=== PATIENT | male | born 1990 | race African-American/Black ===

== ENCOUNTER 2016-12-18 12:03 | Emergency (ER) | payer SELFPAY ==
[~2016-12-18] VITALS: Ht 193 cm; Wt 189.0 kg
[2016-12-18 12:04] VITALS: BP 208/134; PULSE 78; RESP 24; TEMP 98; O2SAT 96
[2016-12-18 12:49] VITALS: BP 145/104; PULSE 75; RESP 20
--- NOTE | 2016-12-18 12:57 | PD ---
HPI Chief Complaint: Headache Time Seen by Provider: 12:52 Travel History International Travel<30 days: No Contact w/Intl Traveler<30days: No Traveled to known affect area: No History of Present Illness HPI Patient is a 26-year-old male presenting to emergency for evaluation of headache. Patient states he has a history of migraines, he reports pain behind his right eye. This is accompanied by photophobia and nausea. He states that he gets headaches 2-3 times a week, this headache started yesterday he has not taken any medication to alleviate the pain. He reports pain as a 6 out of 10 currently. He also reports a history of hypertension, he was previously on lisinopril, triamterene/HCTZ and nifedipine. Patient moved here in July and has been out of his medications for several weeks. He denies any visual changes, chest pain, shortness of breath, dizziness, weakness, fevers or chills. PFSH Past Medical History Hx Anticoagulant Therapy: No Chemotherapy: No Cerebrovascular Accident: No Diabetes: No Hypertension: Yes Respiratory: No Migraines: Yes Past Surgical History Other Surgery: Yes (knee surgery) Social History Alcohol Use: No Tobacco Use: No Substance Use: No Allergies-Medications (Allergen,Severity, Reaction): Coded Allergies: No Known Allergies (Unverified , 12/18/16) Reported Meds & Prescriptions Reported Meds & Active Scripts Active Nifedipine ER 24 HR (Nifedipine) 60 Mg Tab 60 Mg PO DAILY Lisinopril 40 Mg Tab 40 Mg PO DAILY Triamterene-Hydrochlorothiazide 37.5-25 Mg Cap 1 Cap PO DAILY Review of Systems Except as stated in HPI: all other systems reviewed are Neg General / Constitutional: No: Fever HENT: Positive: Headaches, No: Congestion, Neck Stiffness, Neck Pain Cardiovascular: No: Chest Pain or Discomfort Respiratory: No: Shortness of Breath Gastrointestinal: Positive: Nausea, No: Vomiting, Diarrhea, Abdominal Pain Neurologic: Positive: Headache, No: Weakness, Dizziness, Focal Abnormalities, Change in Mentation Physical Exam Narrative GENERAL: Obese, well-developed, alert male. Resting comfortably in no acute distress. SKIN: Focused skin assessment warm/dry. HEAD: Atraumatic. Normocephalic. EYES: Pupils equal and round. No scleral icterus. No injection or drainage. Right eye amblyopia. ENT: No nasal bleeding or discharge. Mucous membranes pink and moist. NECK: Trachea midline. No JVD. CARDIOVASCULAR: Regular rate and rhythm. No murmur appreciated. RESPIRATORY: No accessory muscle use. Clear to auscultation. Breath sounds equal bilaterally. GASTROINTESTINAL: Abdomen soft, non-tender, nondistended. Hepatic and splenic margins not palpable. MUSCULOSKELETAL: No obvious deformities. No clubbing. No cyanosis. No edema. NEUROLOGICAL: Awake and alert. No obvious cranial nerve deficits. Motor grossly within normal limits. Normal speech. PSYCHIATRIC: Appropriate mood and affect; insight and judgment normal. Data Data Last Documented VS Vital Signs Date Time Temp Pulse Resp B/P Pulse Ox O2 Delivery O2 Flow Rate FiO2 12/18/16 12:49 75 20 145/104 12/18/16 12:04 98.0 96 Room Air Orders Comprehensive Metabolic Panel (12/18/16 12:51) Iv Access Insert/Monitor (12/18/16 12:51) Sodium Chloride 0.9% Flush (Ns Flush) (12/18/16 13:00) Ketorolac Inj (Toradol Inj) (12/18/16 13:00) Diphenhydramine Inj (Benadryl Inj) (12/18/16 13:00) Metoclopramide Inj (Reglan Inj) (12/18/16 13:00) Labs Laboratory Tests Test 12/18/16 12:55 Sodium Level 141 MEQ/L Potassium Level 3.9 MEQ/L Chloride Level 104 MEQ/L Carbon Dioxide Level 31.8 MEQ/L Anion Gap 5 MEQ/L Blood Urea Nitrogen 8 MG/DL Creatinine 1.24 MG/DL Estimat Glomerular Filtration 70 ML/MIN Rate Random Glucose 129 MG/DL Calcium Level 8.7 MG/DL Total Bilirubin 1.6 MG/DL Aspartate Amino Transf 63 U/L (AST/SGOT) Alanine Aminotransferase 92 U/L (ALT/SGPT) Alkaline Phosphatase 57 U/L Total Protein 7.5 GM/DL Albumin 3.9 GM/DL [facility] Medical Decision Making Medical Screen Exam Complete: Yes Emergency Medical Condition: Yes Interpretation(s) Vital Signs Date Time Temp Pulse Resp B/P Pulse Ox O2 Delivery O2 Flow Rate FiO2 12/18/16 12:49 75 20 145/104 12/18/16 12:04 98.0 78 24 208/134 96 Room Air Differential Diagnosis Migraine versus tension-type headache versus cluster headache versus elevated blood pressure versus hypertension versus other Narrative Course Patient is a 26-year-old male presenting to emergency evaluation of a headache. Patient is a history of the same, he is neurologically intact. Patient's blood pressure was markedly elevated on arrival, it was reassessed and trended down however he does have a history of hypertension and is currently off of his medications. We'll check chemistry to assess renal function. Medications ordered. 1410 patient reassessed, he was sleeping comfortably, interval improvement in headache. Chemistry assessed, he shows mild transaminitis, renal function is normal. Patient will be provided with prescription refills of his previously prescribed blood pressure medications. He was given information regarding these eye clinic. He was encouraged to establish care with a primary doctor. Patient was educated on the risks of heart disease and stroke with uncontrolled hypertension. Patient verbalizes understanding of instructions. Patient is stable for discharge. Diagnosis Primary Impression: Migraine Qualified Code: G43.909 - Migraine without status migrainosus, not intractable , unspecified migraine type Additional Impression: Hypertension Qualified Code: I10 - Essential hypertension Referrals: [facility] Patient Instructions: General Instructions, Hypertension (ED), Migraine Headache (ED) Additional Instructions: Establish care with a primary doctor or at the [facility] Take medications as directed Patient was encouraged to monitor blood pressure Return to emergency department for any new or worsening symptoms Med/Other Pt SpecificInfo: Prescription(s) given Scripts Nifedipine ER 24 HR 60 Mg Tab60 Mg PO DAILY #30 TAB Ref 0 Prov:Vesna Batista 12/18/16 Lisinopril 40 Mg Tab40 Mg PO DAILY #30 TAB Ref 0 Prov:Vesna Batista 12/18/16 Triamterene-Hydrochlorothiazide 37.5-25 Mg Cap1 Cap PO DAILY #30 CAP Ref 0 Prov:Vesna Batista 12/18/16 Disposition: 01 DISCHARGE HOME Condition: Stable Vesna Batista Dec 18, 2016 12:57 Vesna Batista Dec 18, 2016 12:57
[2016-12-18] MEDS ORDERED: diphenhydrAMINE HCL 50 MG/ML VIAL IVP ONE (13:00)
[2016-12-18] MEDS ORDERED: METOCLOPRAMIDE HCL 10 MG/2 ML VIAL IVP ONE (13:00)
[2016-12-18] MEDS ORDERED: SODIUM CHLORIDE 0.9% FLUSH 10 ML FLUSH IVF PRN (13:00)
[2016-12-18] MEDS ORDERED: KETOROLAC TROMETHAMINE 30 MG/ML (IVP) VIAL IVP ONE (13:00)
[2016-12-18 13:27] LABS: ANION GAP 5 MEQ/L (5-15); AST (GOT) 63 U/L (15-37); BICARBONATE 31.8 MEQ/L (21.0-32.0); BLOOD UREA NITROGEN 8 MG/DL (7-18); CHLORIDE 104 MEQ/L (98-107); GLOMERULAR FILTRATION RATE 70 ML/MIN (>89); POTASSIUM 3.9 MEQ/L (3.5-5.1); SODIUM (NA) 141 MEQ/L (136-145)
[2016-12-18 13:29] LABS: ALKALINE PHOSPHATASE 57 U/L (45-117); ALT (GPT) 92 U/L (12-78); TOTAL BILIRUBIN ADULT 1.6 MG/DL (0.2-1.0)
[2016-12-18] MEDS ORDERED: NIFE60TA58 PO (14:08)
[2016-12-18] MEDS ORDERED: TRIA37.53 PO (14:08)
[2016-12-18] MEDS ORDERED: LISI40TA PO (14:08)
[2016-12-18 14:21] VITALS: BP 146/90
== END 2016-12-18 14:22 | disposition home or self-care (01) ==
LOC: NEPD 12:03
DX: G43.909 Migraine, unspecified, not intractable, without status migrainosus (principal); I10 Essential (primary) hypertension; Z86.69 Personal history of other diseases of the nervous system and sense organs
CPT/HCPCS: 80053; 96374; 96375; 99284; J1200; J1885; J2765

== ENCOUNTER 2016-12-25 18:22 | Emergency (ER) | payer SELFPAY ==
[~2016-12-25] VITALS: Ht 195.6 cm; Wt 185.0 kg
[~2016-12-25 18:22] MED LIST: LISI40TA PO; NIFE60TA58 PO; TRIA37.53 PO
[2016-12-25 18:23] VITALS: BP 185/113; PULSE 90; RESP 16; TEMP 98.3; O2SAT 98
[2016-12-25 18:35] VITALS: BP 177/113; PULSE 82; O2SAT 95
--- NOTE | 2016-12-25 18:38 | PD ---
HPI Chief Complaint: Headache Time Seen by Provider: 18:38 Travel History International Travel<30 days: No Contact w/Intl Traveler<30days: No Traveled to known affect area: No History of Present Illness HPI 26-year-old male with history of hypertension and migraine headaches presents to emergency department today for evaluation of a migraine headache. Pain is generalized, mostly frontal. It is associated with photophobia and mild nausea. This is normal for his migraine headache. No thunderclap onset. Patient states that he started his antihypertensives this morning. He has had to establish primary care. Denies any focal deficits or weakness. No other symptoms to report. PFSH Past Medical History Hx Anticoagulant Therapy: No Chemotherapy: No Cerebrovascular Accident: No Diabetes: No Hypertension: Yes Respiratory: No Migraines: Yes Influenza Vaccination: No Past Surgical History Other Surgery: Yes (knee surgery, turf toe repair) Social History Alcohol Use: Yes (socially) Tobacco Use: No Substance Use: No Allergies-Medications (Allergen,Severity, Reaction): Coded Allergies: No Known Allergies (Unverified , 12/25/16) Reported Meds & Prescriptions Reported Meds & Active Scripts Active Nifedipine ER 24 HR (Nifedipine) 60 Mg Tab 60 Mg PO DAILY Triamterene-Hydrochlorothiazide 37.5-25 Mg Cap 1 Cap PO DAILY Review of Systems Except as stated in HPI: all other systems reviewed are Neg Physical Exam Narrative GENERAL: Obese male patient, ambulatory with a nonantalgic gait no acute distress SKIN: Focused skin assessment warm/dry. HEAD: Atraumatic. Normocephalic. EYES: Pupils equal and round. No scleral icterus. No injection or drainage. ENT: No nasal bleeding or discharge. Mucous membranes pink and moist. NECK: Trachea midline. No JVD. CARDIOVASCULAR: Regular rate and rhythm. No murmur appreciated. RESPIRATORY: No accessory muscle use. Clear to auscultation. Breath sounds equal bilaterally. GASTROINTESTINAL: Abdomen soft, non-tender, nondistended. Hepatic and splenic margins not palpable. MUSCULOSKELETAL: No obvious deformities. No clubbing. No cyanosis. No edema. NEUROLOGICAL: Awake and alert. No obvious cranial nerve deficits. Motor grossly within normal limits. Normal speech. PSYCHIATRIC: Appropriate mood and affect; insight and judgment normal. Data Data Last Documented VS Vital Signs Date Time Temp Pulse Resp B/P Pulse Ox O2 Delivery O2 Flow Rate FiO2 12/25/16 19:10 78 18 177/82 96 Room Air 12/25/16 18:23 98.3 Orders Iv Access Insert/Monitor (12/25/16 18:37) Ketorolac Inj (Toradol Inj) (12/25/16 18:45) Diphenhydramine Inj (Benadryl Inj) (12/25/16 18:45) Metoclopramide Inj (Reglan Inj) (12/25/16 18:45) MDM Medical Decision Making Medical Screen Exam Complete: Yes Emergency Medical Condition: Yes Medical Record Reviewed: Yes Differential Diagnosis Migraine with or without aura versus cluster headache versus tension headache versus hypertension Narrative Course 26-year-old male presents versus prominent for evaluation of migraine headache. He is quite hypertensive here. This is consistent with his history. He states that he started his antihypertensives this morning with his first dose. He has no focal deficits or weakness. Patient is treated for migraine headache. Upon reassessment, he is thankful for the relief. He is encouraged to continue his antihypertensives regularly. He is encouraged to follow-up with primary care provider. He agrees to return immediately with any acute worsening of symptoms. Diagnosis Primary Impression: Migraine Qualified Code: G43.909 - Migraine without status migrainosus, not intractable , unspecified migraine type Additional Impression: Hypertension Qualified Code: I10 - Essential hypertension Referrals: [facility] Primary Care Physician Patient Instructions: General Instructions, Hypertension (ED), Migraine Headache (ED) Additional Instructions: Continue medication as prescribed Follow up with a primary care provider Return to ED with acute worsening of symptoms Med/Other Pt SpecificInfo: No Change to Meds Disposition: 01 DISCHARGE HOME Condition: Stable Shelia James Dec 25, 2016 18:38
[2016-12-25] MEDS ORDERED: diphenhydrAMINE HCL 50 MG/ML VIAL IV PUSH ONE (18:45)
[2016-12-25] MEDS ORDERED: KETOROLAC TROMETHAMINE 30 MG/ML (IVP) VIAL IV PUSH ONE (18:45)
[2016-12-25] MEDS ORDERED: METOCLOPRAMIDE HCL 10 MG/2 ML VIAL IV PUSH ONE (18:45)
[2016-12-25 19:10] VITALS: BP 177/82; PULSE 78; RESP 18; O2SAT 96
== END 2016-12-25 20:50 | disposition home or self-care (01) ==
LOC: NEPE 18:22
DX: G43.909 Migraine, unspecified, not intractable, without status migrainosus (principal); I10 Essential (primary) hypertension
CPT/HCPCS: 96374; 96375; 99284; J1200; J1885; J2765

== ENCOUNTER 2017-07-27 13:33 | Emergency (ER) | payer SELFPAY ==
[~2017-07-27] VITALS: Ht 198.1 cm; Wt 189.0 kg
[2017-07-27 13:35] VITALS: BP 184/130; PULSE 112; RESP 20; TEMP 100.8; O2SAT 96
[2017-07-27] MEDS ORDERED: ACETAMINOPHEN 325 MG TAB PO ONE (13:45)
[2017-07-27 15:24] VITALS: TEMP 99.2
[2017-07-27] MEDS ORDERED: OSEL75 PO (15:39)
--- NOTE | 2017-07-27 15:40 | PD ---
HPI Chief Complaint: Cold / Flu Symptoms Time Seen by Provider: 14:59 Travel History International Travel<30 days: No Contact w/Intl Traveler<30days: No Traveled to known affect area: No History of Present Illness HPI The patient is a 26-year-old [place] male who presents emergency department for body aches, congestion, sore throat, jaw pain, and myalgias. The patient's symptoms started yesterday, he does note a fever as high as 100.8. The patient received Tylenol upon arrival to the emergency department. 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 He denies any nausea, vomiting, diarrhea , or abdominal pain. He does note a dry nonproductive cough without any shortness of breath or chest pain. Symptoms are mild to moderate, there are no current alleviating or exacerbating factors. PFSH Past Medical History Hx Anticoagulant Therapy: No Cardiovascular Problems: Yes (HTN) Chemotherapy: No Cerebrovascular Accident: No Diabetes: No Hypertension: Yes Respiratory: No Migraines: Yes Past Surgical History Surgical History: No Previous Surgery Other Surgery: Yes (knee surgery, turf toe repair) Social History Alcohol Use: Yes (socially) Tobacco Use: No Substance Use: No Allergies-Medications (Allergen,Severity, Reaction): Coded Allergies: No Known Allergies (Unverified Adverse Reaction, Unknown, 07/27/17) Reported Meds & Prescriptions Reported Meds & Active Scripts Active Lisinopril 40 Mg Tab 40 Mg PO DAILY Triamterene-Hydrochlorothiazide 37.5-25 Mg Cap 1 Cap PO DAILY Review of Systems Except as stated in HPI: all other systems reviewed are Neg General / Constitutional: Positive: Fever HENT: Positive: Sore Throat, Congestion Cardiovascular: No: Chest Pain or Discomfort Respiratory: Positive: Cough, No: Shortness of Breath Gastrointestinal: No: Nausea, Vomiting, Diarrhea, Abdominal Pain Genitourinary: No: Dysuria Musculoskeletal: Positive: Myalgias Physical Exam Narrative GENERAL: Awake, alert, pleasant 26-year-old male who appears his stated age and is in no acute respiratory distress. SKIN: Focused skin assessment warm/dry. HEAD: Atraumatic. Normocephalic. EYES: Pupils equal and round. No scleral icterus. No injection or drainage. ENT: No nasal bleeding or discharge. Erythema without exudate. TMs are translucent. EACs are clear. NECK: Trachea midline. No JVD. CARDIOVASCULAR: Regular rate and rhythm. No murmur appreciated. RESPIRATORY: No accessory muscle use. Clear to auscultation. Breath sounds equal bilaterally. GASTROINTESTINAL: Abdomen soft, non-tender, nondistended. No rebound tenderness. MUSCULOSKELETAL: No obvious deformities. No clubbing. No cyanosis. No edema. NEUROLOGICAL: Awake and alert. No obvious cranial nerve deficits. Motor grossly within normal limits. Normal speech. PSYCHIATRIC: Appropriate mood and affect; insight and judgment normal. Data Data Last Documented VS Vital Signs Date Time Temp Pulse Resp B/P (MAP) Pulse Ox O2 Delivery O2 Flow Rate FiO2 07/27/17 15:24 99.2 07/27/17 13:35 112 20 96 Room Air Orders Orders Influenzae A/B Antigen (07/27/17 13:40) Acetaminophen (Tylenol) (07/27/17 13:45) MDM Medical Decision Making Medical Screen Exam Complete: Yes Emergency Medical Condition: Yes Medical Record Reviewed: Yes Interpretation(s) Date/Time Source Procedure Growth Status 07/27/17 14:15 Nasal Aspirate Influenza Types A,B Antigen (XU) - Final Positive For Flu A Antigen Complete Differential Diagnosis Differential diagnosis includes influenza, viral syndrome, bronchitis, pneumonia , URI. Narrative Course The patient received Tylenol in the emergency department. Influenza A is positive, will be treated with Tamiflu. He is advised to return to work once he is afebrile for 24 hours. Return if symptoms worsen or progress. Plenty fluids to stay hydrated. Follow-up with your primary physician. Diagnosis Primary Impression: Influenza A Patient Instructions: General Instructions Additional Instructions: Please provide the patient a work excuse for 3 days. Return to work once you are afebrile. 24 hours. Plenty fluids to stay hydrated. Tamiflu as directed. Med/Other Pt SpecificInfo: Prescription(s) given Scripts Oseltamivir (Tamiflu) 75 Mg Cap 75 MG PO BID for Mgmt Viral Infection for 5 Days, #10 CAP 0 Refills Prov: Felipe Xie MD 07/27/17 Disposition: 01 DISCHARGE HOME Condition: Stable Felipe Xie MD Jul 27, 2017 15:39
[2017-07-27 15:57] VITALS: TEMP 99
== END 2017-07-27 15:57 | disposition home or self-care (01) ==
LOC: NEPD 13:33
DX: J09.X2 Influenza due to identified novel influenza A virus with other respiratory manifestations (principal); I10 Essential (primary) hypertension; Z79.899 Other long term (current) drug therapy
CPT/HCPCS: 87804; 99283